=== PATIENT | male | born 1960 | race Caucasian/White ===

== ENCOUNTER → 2016-12-13 | Outpatient (CLI) | payer OTHER ==
--- NOTE | 2016-12-13 12:35 | MAMMOGRAPHY REPORT ---
MALE BILATERAL DIGITAL DIAGNOSTIC MAMMOGRAM WITH CAD AND TARGETED BILATERAL ULTRASOUND: 12/13/2016 CLINICAL HISTORY: 56-year-old male with a palpable lump in the subareolar right breast for 3-4 weeks . It is occasionally tender. No skin changes or nipple discharge. No family history of breast can cer. TECHNIQUE: Bilateral CC and MLO views with an additional spot compression right CC to the digital an d tomosynthesis images were obtained. Current study was also evaluated with a Computer Aided Detect ion (CAD) system. COMPARISON: No prior exams were available for comparison. BREAST COMPOSITION: The breast parenchyma is nearly entirely fat. FINDINGS: There is focal fibroglandular tissue in the subareolar right breast, correlating with the new palpable lump. A morphologically normal intramammary lymph node is identified in the left upper outer posterior breast. No suspicious spiculated mass, architectural distortion or cluster of susp icious microcalcifications is seen. Targeted ultrasound was performed in the retroareolar aspect of each breast with particular attentio n to the right retroareolar breast in the area of palpable concern pointed out by the patient. Phani tional sonographic evaluation was performed of the left upper outer quadrant for the lymph node. Th ere is a hypoechoic mount of breast tissue in the subareolar/retroareolar right breast in the area o f palpable concern. No underlying suspicious solid mass is seen. No significant breast history of development is seen in the left retroareolar breast. In the left upper outer quadrant, 1:00 axis, 5 cm from the nipple, there is a morphologically normal intramammary lymph node measuring 8.0 x 3.0 m m, with a thin cortex measuring 1.5 mm. IMPRESSION: ACR BI-RADS CATEGORY 2: BENIGN, TARGETED ULTRASOUND ACR BI-RADS CATEGORY 2: BENIGN There is right gynecomastia, correlating with the tender palpable lump in the subareolar right breas t. No mammographic or targeted sonographic evidence of malignancy. Clinical follow-up is recommend ed as to possible underlying cause. These results and augmentations were discussed with the patient at the time of the exam. Approximately 10% of breast cancers are not detected with mammography. A negative mammographic repor t should not delay biopsy if a clinically suggestive mass is present. Jessica Dye M.D. ay/:12/13/2016 10:00:40 Criminal Justice Program Director: Yuly ANSARI(R)(M), [facility] letter sent: Normal /2 BI-RADS Code: ACR BI-RADS Category 2: Benign Ultrasound BI-RADS: ACR BI-RADS Category 2: Benign
== END | disposition home or self-care (01) ==
LOC: C.MAMM 09:01
PROVIDERS: ATTEND Internal Medicine Geriatric Medicine
DX: N63 Unspecified lump in breast (principal); N62 Hypertrophy of breast

== ENCOUNTER → 2016-12-24 | Outpatient (CLI) | payer OTHER ==
[2016-12-24 17:07] LABS: ALT/SGPT 20 U/L (12-78); BLOOD UREA NITROGEN 8 mg/dl (7-18); BUN/CREATININE RATIO 10.8 (10-20); CARBON DIOXIDE 29 mmol/L (21-32); CHLORIDE 92 mmol/L (98-107); CREATININE 0.71 mg/dl (0.60-1.40); GLUCOSE 88 mg/dl (70-99); POTASSIUM 3.9 mmol/L (3.5-5.1); SODIUM 133 mmol/L (136-145)
[2016-12-24 17:18] LABS: ALKALINE PHOSPHATASE 72 U/L (45-117); AST/SGOT 16 U/L (15-37)
[2016-12-24 17:26] LABS: PROLACTIN 6.28 ng/mL
== END | disposition home or self-care (01) ==
LOC: C.LABBC 13:29
PROVIDERS: ATTEND Internal Medicine Geriatric Medicine
DX: N62 Hypertrophy of breast (principal)

== ENCOUNTER → 2017-02-28 | Outpatient (CLI) | payer OTHER ==
[~2017-02-28] MED LIST: OPTIRAY 320 IV PRN
--- NOTE | 2017-02-28 16:21 | DIAGNOSTIC IMAGING REPORT ---
ABDOMINAL CT WITH INTRAVENOUS AND ORAL CONTRAST HISTORY: N64 Gynecomastia, male Special attention to adrenals and liver. E TECHNIQUE: Multiaxial CT images of the abdomen were performed following the use of intravenous and oral contrast COMPARISON STUDY: None. FINDINGS: The lung bases are clear. Bilateral L5 spondylolysis. No suspicious lytic or blastic osseous lesions. The gallbladder, spleen, adrenal glands, and kidneys are unremarkable. No adrenal gland nodules identified. The pancreas enhances normally. Focal hypodense area within segment IVb of the liver adjacent to the falciform ligament. This is consistent with focal fat. No hepatic masses identified. The main portal vein is patent. No retroperitoneal lymphadenopathy. Small fat-containing umbilical hernia. Normal appendix. No retroperitoneal lymphadenopathy. There is a single inflamed diverticulum with mild pericolonic fat stranding within the descending colon. This is consistent with acute diverticulitis. Minimal to mild bilateral gynecomastia, right greater than left. IMPRESSION: 1. No hepatic or adrenal gland masses. 2. Mild acute diverticulitis within the descending colon. No perforation or abscess at this time. 3. Minimal to mild bilateral gynecomastia, right greater than left. Electronically signed by: Blue Orantes M.D. 02/28/2017 4:04 PM Dictated Date/Time: 02/28/2017 3:55 PM
== END | disposition home or self-care (01) ==
LOC: C.CTS 14:29
PROVIDERS: ATTEND Internal Medicine Endocrinology, Diabetes & Metabolism
DX: N62 Hypertrophy of breast (principal)

== ENCOUNTER → 2017-03-14 | Outpatient (CLI) | payer OTHER ==
[2017-03-14 17:11] LABS: BLOOD UREA NITROGEN 7 mg/dl (7-18); BUN/CREATININE RATIO 8.8 (10-20); CARBON DIOXIDE 33 mmol/L (21-32); CHLORIDE 98 mmol/L (98-107); CREATININE 0.78 mg/dl (0.60-1.40); GLUCOSE 98 mg/dl (70-99); POTASSIUM 3.8 mmol/L (3.5-5.1); SODIUM 137 mmol/L (136-145)
[2017-03-14 17:18] LABS: ALB/GLOB RATIO 1.1 (0.9-2); ALKALINE PHOSPHATASE 77 U/L (45-117); ALT/SGPT 26 U/L (12-78); AST/SGOT 20 U/L (15-37)
[2017-03-24 00:58] LABS: AFP TUMOR MARKER SERUM 10.2 NG/ML (<6.1)
== END | disposition home or self-care (01) ==
LOC: C.LABBC 13:39
PROVIDERS: ATTEND Internal Medicine Endocrinology, Diabetes & Metabolism
DX: N62 Hypertrophy of breast (principal); R94.7 Abnormal results of other endocrine function studies